=== PATIENT | female | born 1985 | race Caucasian/White ===

== ENCOUNTER 2018-01-19 11:01 | Emergency (ER) | payer OTHER ==
[~2018-01-19] VITALS: Ht 175.3 cm; Wt 141.8 kg
[~2018-01-19 11:01] MED LIST: BENADRYL25 MG PO; CIPRO HC OTIC S10 ML LEFT EAR; GLUCOTROL5 MG PO; INVOKANA100 MG PO; JANUMET XR 1001 EACH PO; LEVO-T300 MCG PO; LEVOTHROID,S0.175 MG PO; LEVOTHYROXINE175 MCG PO; NAPROSYN500 MG PO; NORCO 5/3251 TABLET PO; ONGLYZA5 MG PO; TRULICITY1.5 MG/0.5 SC
[2018-01-19] MEDS ORDERED: TYLENOL WITH C1 EACH PO (13:08)
[2018-01-19 13:19] VITALS: BP 111/79
== END 2018-01-19 13:21 | disposition home or self-care (01) ==
LOC: EME 11:01
DX: S50.11XA Contusion of right forearm, initial encounter (principal); M54.2 Cervicalgia; V47.0XXA Car driver injured in collision with fixed or stationary object in nontraffic accident, initial encounter; Y92.410 Unspecified street and highway as the place of occurrence of the external cause; E11.9 Type 2 diabetes mellitus without complications; Z79.84 Long term (current) use of oral hypoglycemic drugs; Z87.891 Personal history of nicotine dependence
CPT/HCPCS: 70450; 72125; 73090; 73110; 99281; 99284